=== PATIENT | male | born 1930 | race Caucasian/White ===

== ENCOUNTER 2017-10-05 13:24 | Emergency (ER) | payer MEDICARE, BC ==
[2017-10-05] MEDS: Ondansetron 4 MG Tab.DIS PO ONE (13:52)
--- NOTE | 2017-10-05 15:54 | EDM.PDOC ---
ED HPI GENERAL MEDICAL PROBLEM - General Chief Complaint: General Stated Complaint: nausea, fatigue Time Seen by Provider: 10/05/17 13:32 Source of Information: Reports: Family History Limitations: Reports: Altered Mental Status (dementia) - History of Present Illness INITIAL COMMENTS - FREE TEXT/NARRATIVE: Patient brought in by family after complaining of nausea s/p apparent fall. found him sleeping on the floor next to his bed this morning. She often sleeps in a different room as he is frequently up and active at night. He was able to get up from the floor and walk. No initial concerns per family. Patient was not complaining of pain/injury. They became concerned when he started to complain of nausea and appeared to be more fatigued than usual, thinking that maybe he hit his head/fell during the night. Patient continues to have no pain complaints. Family says that he has a hard time verbalizing pain and localizing complaints when he has problems. No other concerns per family. - Related Data Allergies Allergy/AdvReac Type Severity Reaction Status Date / Time Penicillins Allergy Cannot Verified 10/05/17 13:25 Remember Home Meds: Home Meds RX: Cholecalciferol (Vitamin D3) [Vitamin D3] 4,000 unit PO DAILY@1200 05/03/13 [History] RX: Donepezil [Aricept] 10 mg PO DAILY 05/03/13 [History] RX: Fenofibrate,Micronized [Fenofibrate] 134 mg PO QPM 05/03/13 [History] RX: Losartan [Cozaar] 25 mg PO QPM 05/03/13 [History] RX: Multivitamin [Multivitamins] 1 cap PO DAILY@1200 05/03/13 [History] RX: Thiamine Mononitrate [Vitamin B-1] 100 mg PO DAILY@1200 05/03/13 [History] RX: Aspirin [Halfprin] 81 mg PO DAILY 10/05/17 [History] RX: Doxazosin [Cardura] 6 mg PO DAILY 10/05/17 [History] RX: Simvastatin [Zocor] 40 mg PO BEDTIME 10/05/17 [History] RX: Solifenacin [Vesicare] 5 mg PO BEDTIME 10/05/17 [History] traMADol HCl [Tramadol HCl] 50 mg PO Q6H PRN #16 tablet 10/05/17 [Rx] Past Medical History HEENT History: Reports: Cataract, Impaired Vision Cardiovascular History: Reports: CAD, High Cholesterol, Hypertension Gastrointestinal History: Reports: Bowel Obstruction, Other (See Below) Other Gastrointestinal History: Micheals divertivulum Musculoskeletal History: Reports: Back Pain, Chronic Psychiatric History: Reports: Anxiety, Dementia, Depression Hematologic History: Reports: Other (See Below) Other Hematologic History: Hx of Polycytemia Vera Dermatologic History: Reports: Psoriasis - Infectious Disease History Infectious Disease History: Reports: Mumps - Past Surgical History GI Surgical History: Reports: Small Bowel, Other (See Below) Social & Family History - Tobacco Use Tobacco Use Within Last Twelve Months: No - Alcohol Use Alcohol Use History: No - Recreational Drug Use Recreational Drug Use: No Drug Use in Last 12 Months: No ED ROS GENERAL - Review of Systems Review Of Systems: Unable To Obtain (due to dementia) ED EXAM, GENERAL - Physical Exam Exam: See Below Exam Limited By: No Limitations General Appearance: Alert, WD/WN, No Apparent Distress Eye Exam: Bilateral Eye: EOMI, PERRL Ears: Normal External Exam, Normal Canal, Other (right TM blocked by wax, left TM appears normal) Ear Exam: Right Ear: Other (early bruising noted on lower right ear) Nose: Normal Inspection. No: Nasal Deformity, Nasal Swelling, Nasal Drainage Throat/Mouth: Normal Lips, Normal Oropharynx, Normal Voice, No Airway Compromise , Other (missing most of teeth) Head: No: Facial Swelling, Facial Tenderness Neck: Normal Inspection, Supple, Non-Tender, Full Range of Motion. No: Tender Lateral, Tender Midline Respiratory/Chest: No Respiratory Distress, Lungs Clear, Normal Breath Sounds, No Accessory Muscle Use, Chest Non-Tender Cardiovascular: Normal Peripheral Pulses, Regular Rate, Rhythm, No Murmur Peripheral Pulses: 2+: Radial (L), Radial (R) GI/Abdominal: Normal Bowel Sounds, Soft, Non-Tender (Male) Exam: Deferred Rectal (Males) Exam: Deferred Back Exam: Normal Inspection. No: CVA Tenderness (L), CVA Tenderness (R), Muscle Spasm, Paraspinal Tenderness, Vertebral Tenderness Extremities: Non-Tender, Normal Capillary Refill, Other (No focal tenderness noted except for upper arm mildly tender. Patient did complain of pain when moving right arm to remove shirt and during ROM attempts. He could not however localize the pain/point to the pain to tell us where exactly he hurt). No: Joint Swelling, Leg Pain Neurological: Alert, Confused, Memory Loss Recent Events, Other (Cannot walk well without walker. Strength/tone grossly symmetric arms/legs. Unable to raise either arm above shoulder. ) Psychiatric: Normal Affect, Normal Mood Skin Exam: Warm, Dry, Intact, Ecchymosis (right ear, right lateral arm has early bruise and mild abrasion) Course - Vital Signs Last Recorded V/S: Last Vital Signs Temp 36.9 C 10/05/17 13:25 Pulse 60 10/05/17 13:50 Resp 20 10/05/17 13:50 BP 145/64 H 10/05/17 13:50 Pulse Ox 94 L 10/05/17 13:50 - Orders/Labs/Meds Orders: Active Orders 24 hr Category Date Time Status EKG Documentation Completion [RC] ASDIRECTED Care 10/05/17 14:36 Inactive Chest 1V Frontal [CR] Stat Exams 10/05/17 14:52 Taken Humerus Rt [CR] Stat Exams 10/05/17 14:52 Taken Shoulder 1V Rt [CR] Stat Exams 10/05/17 14:51 Stop Req Shoulder Comp Rt [CR] Stat Exams 10/05/17 15:07 Taken Labs: Laboratory Tests 10/05/17 10/05/17 10/05/17 Range/Units 13:40 13:40 14:00 WBC 12.2 H (4.0-10.2) K/uL RBC 5.06 (4.33-5.41) M/uL Hgb 15.2 (13.1-16.8) g/dL Hct 45.4 (39.0-49.0) % MCV 89.7 (84.0-98.0) fL MCH 30.0 (28.2-33.3) pg MCHC 33.5 (31.7-36.0) g/dL RDW 14.5 H (11.2-14.1) % Plt Count 169 (150-350) K/uL Neut % (Auto) 76.3 (45.0-80.0) % Lymph % (Auto) 13.7 (10.0-50.0) % [place] % (Auto) 9.5 (2.0-14.0) % Eos % (Auto) 0.2 (0.0-5.0) % Baso % (Auto) 0.3 (0.0-2.0) % Neut # (Auto) 9.29 H (1.40-7.00) K/uL Lymph # (Auto) 1.67 (0.50-3.50) K/uL [place] # (Auto) 1.16 H (0.00-1.00) K/uL Eos # (Auto) 0.02 (0.00-0.50) K/uL Baso # (Auto) 0.04 (0.00-0.20) K/uL Sodium 141 (136-145) mmol/L Potassium 4.2 (3.5-5.1) mmol/L Chloride 105 (98-107) mmol/L Carbon Dioxide 23.9 (21.0-32.0) mmol/L BUN 22 H (7-18) mg/dL Creatinine 1.53 H (0.51-1.17) mg/dL Est Cr Clr Drug Dosing 35.12 mL/min Estimated GFR (MDRD) 43 mL/min Glucose 111 H (74-106) mg/dL Calcium 9.2 (8.5-10.1) mg/dL Total Bilirubin 0.5 (0.2-1.0) mg/dL AST 24 (15-37) U/L ALT 17 (12-78) U/L Alkaline Phosphatase 31 L (46-116) IU/L Creatine Kinase 892 H (26-308) U/L Creatine Kinase Index 0.4 (0.0-2.5) % CK-MB (CK-2) 3.90 H (0.00-3.60) ng/mL Troponin I 0.004 (0.000-0.056) ng/mL Total Protein 7.0 (6.4-8.2) g/dL Albumin 3.6 (3.4-5.0) g/dL Meds: Medications Discontinued Medications Generic Name Dose Route Start Last Admin Trade Name Freq PRN Reason Stop Dose Admin Acetaminophen 650 mg 10/05/17 15:42 10/05/17 16:00 Tylenol PO 10/05/17 15:43 Not Given NOW ONE Ondansetron HCl 4 mg 10/05/17 13:32 10/05/17 13:52 Zofran Odt PO 10/05/17 13:33 4 mg ONETIME ONE Administration - Radiology Interpretation Free Text/Narrative:: Shoulder/chest/humerus films obtained. Appears to have fractured humeral head. Osteopenia. - Re-Assessments/Exams Free Text/Narrative Re-Assessment/Exam: 10/05/17 16:10 Suspect humeral head fracture. Sling provided. No other obvious injuries noted other than bruise on right eliezer. After discussing pros/cons of CT imaging to rule out intracranial trauma, family decided against that at this time. Cannot rule out mild concussion given earlier complaint of nausea (now resolved after Zofran), however nausea could also be secondary to pain issues. Free Text/Narrative Re-Assessment/Exam: Radiology review of Xray noted irregularity in humeral head also, but felt this could be an "old" injury and recommended CT if there was still question about a fracture. . Patient's family deny that he previously injured this same area. Nursing staff subsequently called the family after discharge to inform them of the official review. An order for outpatient CT scan of the right shoulder was written. Family are supposed to bring patient back over the weekend in order to perform this scan. Departure - Departure Time of Disposition: 16:00 Disposition: Home, Self-Care 01 Condition: Good Clinical Impression: Humeral head fracture Qualifiers: Encounter type: initial encounter Fracture type: closed Laterality: right Qualified Code(s): S42.291A - Other displaced fracture of upper end of right humerus, initial encounter for closed fracture Fall Qualifiers: Encounter type: initial encounter Qualified Code(s): W19.XXXA - Unspecified fall, initial encounter Contusion of right ear Qualifiers: Encounter type: initial encounter Qualified Code(s): S00.431A - Contusion of right ear, initial encounter - Discharge Information Prescriptions: traMADol HCl [Tramadol HCl] 50 mg PO Q6H PRN #16 tablet PRN Reason: Pain Instructions: Humerus Fracture Treated With Immobilization, [id number], Head Injury, Adult, How to Use a Sling, [id number] Referrals: Debi Iqbal NP [Primary Care Provider] - Forms: ED Department Discharge Additional Instructions: If Fractured: Follow up at [facility] walk-in clinic on Sunday ([place]) If you choose to go to [facility], they will have copies of the xrays. If you choose to go to [facility], please contact us as we will have to send the Xrays to their facility. Go early so that you will be seen that same day. Have patient wear the sling to help keep the shoulder more comfortable. If the Radiology report does not show any sign of a fracture we will call and update you. If not fractured follow up with [facility] if needed. Still can use arm sling as needed. OK to use Tylenol for pain. You have been given a prescription for Tramadol which can be taken one every 6-8 hours as needed. - My Orders Last 24 Hours: My Active Orders 10/05/17 14:36 EKG Documentation Completion [RC] ASDIRECTED 10/05/17 14:51 Shoulder 1V Rt [CR] Stat 10/05/17 14:52 Chest 1V Frontal [CR] Stat Humerus Rt [CR] Stat 10/05/17 15:07 Shoulder Comp Rt [CR] Stat - Assessment/Plan Last 24 Hours: My Active Orders 10/05/17 14:36 EKG Documentation Completion [RC] ASDIRECTED 10/05/17 14:51 Shoulder 1V Rt [CR] Stat 10/05/17 14:52 Chest 1V Frontal [CR] Stat Humerus Rt [CR] Stat 10/05/17 15:07 Shoulder Comp Rt [CR] Stat
[2017-10-05] MEDS: Acetaminophen 325 MG Tab PO ONE (16:00)
[2017-10-05 17:55] VITALS: BP 145/64
== END 2017-10-05 16:35 | disposition home or self-care (01) ==
LOC: LL.ED 13:24
DX: S42.291A Other displaced fracture of upper end of right humerus, initial encounter for closed fracture (principal); S00.431A Contusion of right ear, initial encounter; I25.10 Atherosclerotic heart disease of native coronary artery without angina pectoris; E78.00 Pure hypercholesterolemia, unspecified; I10 Essential (primary) hypertension; F41.9 Anxiety disorder, unspecified; F32.9 Major depressive disorder, single episode, unspecified; Z88.0 Allergy status to penicillin; Z79.899 Other long term (current) drug therapy; W19.XXXA Unspecified fall, initial encounter
CPT/HCPCS: 36415; 71045; 73030-RT; 73060-RT; 80053; 82550; 82553; 84484; 85025; 99284; A9270-GY